=== PATIENT | male | born 1945 | race Caucasian/White ===

== ENCOUNTER 2016-10-10 07:47 | Day surgery (SDC) | payer MEDICARE ==
[2016-10-04 13:53] VITALS: BMI 34.1
[~2016-10-10 07:47] MED LIST: LACTATED RINGERS 1,000 ML IV SCH
[2016-10-10 08:13] VITALS: TEMP 97.7
[2016-10-10] MEDS ORDERED: LIDOCAINE 1% 20 ML VIAL (10MG/ML) FOR IV START INTRADERMA ONE (08:26)
[2016-10-10] MEDS ORDERED: PROPOFOL 10 MG/ML 20 ML VIAL IV ONE (08:31)
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
[2016-10-10 08:50] LABS: Glucose,Whole Blood 95 mg/dL (75-99)
[2016-10-10 09:10] VITALS: RESP 16
--- NOTE | 2016-10-10 09:13 | P.PCN ---
Date of Procedure: 10/10/16 Procedure(s) Performed: PREOPERATIVE DIAGNOSIS: History of colon cancer POSTOPERATIVE DIAGNOSIS: Poor prep but otherwise normal exam with diverticulosis PROCEDURE: Colonoscopy ANESTHESIA: MAC SURGEON: Mitch Manley M.D. SPECIMENS: None ENDOSCOPIC PROCEDURE: The patient was placed on the endoscopy table in the left decubitus position. The Olympus colonoscope was inserted into the anus and passed under direct visualization to the ileocolonic anastomosis. From that point the scope was slowly withdrawn inspecting all surfaces carefully. There were no neoplastic inflammatory or polypoid lesions throughout the transverse, descending, sigmoid and rectum. There was mild diverticulosis noted in the left colon. Overall the patient's prep was slightly suboptimal. Digital rectal examination was normal. The patient was taken to the recovery room in stable condition per anesthesia guidelines. RECOMMENDATIONS: Increase fiber. Follow-up colonoscopy in 3 years.
[2016-10-10 09:29] LABS: Glucose,Whole Blood 88 mg/dL (75-99)
[2016-10-10 10:18] VITALS: BP 95/58; PULSE 54
== END 2016-10-10 10:42 | disposition home or self-care (01) ==
LOC: ORWHC2ENDO 07:47
PROVIDERS: ATTEND Surgery
DX: Z08 Encounter for follow-up examination after completed treatment for malignant neoplasm (principal); K57.30 Diverticulosis of large intestine without perforation or abscess without bleeding; Z85.038 Personal history of other malignant neoplasm of large intestine; I50.9 Heart failure, unspecified; I10 Essential (primary) hypertension; J44.9 Chronic obstructive pulmonary disease, unspecified; E11.9 Type 2 diabetes mellitus without complications; H54.42 Blindness, left eye, normal vision right eye; H91.90 Unspecified hearing loss, unspecified ear; N40.0 Benign prostatic hyperplasia without lower urinary tract symptoms; F39 Unspecified mood [affective] disorder; Z90.49 Acquired absence of other specified parts of digestive tract; Z98.0 Intestinal bypass and anastomosis status; Z79.84 Long term (current) use of oral hypoglycemic drugs; Z79.891 Long term (current) use of opiate analgesic; Z79.899 Other long term (current) drug therapy
CPT/HCPCS: 45378; J2704

== ENCOUNTER → 2018-04-28 | Outpatient (CLI) | payer MEDICARE ==
--- NOTE | 2018-04-28 16:59 | CT ---
EXAMINATION TYPE: CT abdomen pelvis wo con DATE OF EXAM: 04/28/2018 COMPARISON: None INDICATION: Chronic UTI. DLP: 1681.3 mGycm, Automated exposure control for dose reduction was used. CONTRAST: 0 mL of Isovue 300. Study performed without Oral Contrast TECHNIQUE: Axial images were obtained from above the diaphragm to the pubic rami in the axial plane a t 5 mm thick sections. Reconstructed images are reviewed on the computer in the coronal plane. FINDINGS: Limited CT sections are obtained the lung bases. There is thickening through the left lower lobe per ibronchial regions. Underlying mass is not excluded. Right lung base appears clear.. CT ABDOMEN: Liver: Normal Spleen: Normal Pancreas: Some mild fatty infiltration is present. Adrenal glands: Left adrenal gland has some low density thickening 1.4 cm. Gallbladder: Gallstones are present. Kidneys: No masses are evident. No hydronephrosis is present. There is moderate to marked right hydr oureter which extends to the urinary bladder. No obstructing calcification is identified. There are 2 adjacent cysts extending from the mid to inferior pole left kidney measuring 5.2 cm and 9 Hounsfield units and 4.6 cm in 6 Hounsfield units. There is a posterior inferior pole right renal cyst measurin g 2.4 cm and 11 Hounsfield units. There is a prominent left hydroureter which terminates at the urina ry bladder. No renal or ureteral stones are identified. Aorta: Vascular calcification is within the aorta. Inferior vena cava: Normal. CT PELVIS: Loops of bowel within the abdomen and pelvis are normal. There is a small fecal bolus at the leve l the rectum. Fecal impaction is not excluded. Postsurgical changes are at the symphysis descending c olon sigmoid colon junction. Appendix: Normal as visualized. Urinary bladder: Urinary bladder wall appears within normal limits. No suspicious masses or calcifica tions are identified. No etiology for bilateral hydroureter is evident. Some mild wall thickening bhavya ng the anterior urinary bladder is not excluded. Genitourinary structures: Prostate is prominent contains multiple small calcifications. Outlet obstru ction may be present. Neurogenic bladder however is not clearly identified. Osseous structures: No suspicious lytic or sclerotic lesions. IMPRESSIONS: 1. Correlate for fecal impaction at the level the rectum. 2. Postsurgical changes at the descending colon sigmoid colon junction without evidence of obstructio n or stenosis. Some mild fecal retention to the colon is present. 3. Prominent bilateral ureteral dilatation with bilateral hydronephrosis. An obstructing etiology is not identified. 4. Mild wall thickening more anterior within urinary bladder is not excluded in the coronal plane whi ch has a more normal appearance in the axial plane. Consider the possibility of outlet obstruction wi th prominent prostate with multiple small calcifications. 5. There appears to be peribronchial thickening within the [id number] of the left lower lobe. Cons ider complete CT chest for additional evaluation. Neoplasm is not excluded.
== END | disposition home or self-care (01) ==
LOC: RADCTMAIN 11:10
PROVIDERS: ATTEND Urology
DX: N13.30 Unspecified hydronephrosis (principal); N28.82 Megaloureter; N32.89 Other specified disorders of bladder
CPT/HCPCS: 74176

== ENCOUNTER → 2018-05-21 | Outpatient (CLI) | payer MEDICARE ==
--- NOTE | 2018-05-21 14:51 | CT ---
EXAMINATION TYPE: High-resolution CT chest wo con DATE OF EXAM: 05/21/2018 COMPARISON: Correlation radiographs 05/12/2018 . Also, correlation CT abdomen 04/28/2018 HISTORY: 73-year-old male chest mass lump, cough. TECHNIQUE: Contiguous high-resolution axial scanning of the chest without IV contrast. 10 m slice thi ckness with 1 cm gap per HRCT protocol. Only supine scanning was performed. The patient declined pron e imaging. CT DLP: 535.8 mGycm Automated exposure control for dose reduction was used. FINDINGS: Moderate to large bilateral gynecomastia. Heart normal size without pericardial effusion. Extensive coronary vessel calcifications are present. Conventional arch vessel branching anatomy. Mildly aneurysmal upper descending thoracic aorta at 3.2 cm an ectatic lower descending thoracic aorta at 2.7 cm. No thoracic lymphadenopathy by HR CT technique. Mild diffuse bronchial wall thickening with strandy areas of atelectasis or scarring particularly at the posterior left base at the site of previously seen abnormal left basilar density on the [address] The opacity appears to have largely cleared. As HRCT is limited for assessment of nodules, a precautionary 6-12 month follow-up can be performed. No honeycombing, dominant groundglass, cystic change, bronchiectasis, centrilobular nodules, tree-in- bud opacities, or thickening of the bronchovascular bundles. No consolidation or pleural effusion. HR CT technique limits assessment for pulmonary nodules. Tiny hiatal hernia. Large exophytic left renal lesions partially visualized measuring up to at least 6.2 cm. These were present on the patient's 08/06/2017 CT and showed fluid attenuation suggesting larg e cysts. Cholelithiasis without abnormal gallbladder distention. Bones: Endplate spondylosis throughout the thoracic spine. IMPRESSION: 1. HRCT OF THE CHEST WITHOUT SPECIFIC FINDINGS OF INTERSTITIAL LUNG DISEASE. THERE IS MILD BRONCHIAL WALL THICKENING WHICH MAY REFLECT BRONCHITIS OR ASTHMA. 2. MOTION ARTIFACTS AT THE LEFT BASE AT THE SITE OF PREVIOUSLY SEEN LEFT LOWER LOBE OPACITY. THIS [place] APPEARS TO HAVE LARGELY CLEARED SUGGESTING RESOLUTION OF A PREVIOUS INFECTIOUS/INFLAMMATORY PROC ESS. HRCT IS LIMITED FOR ASSESSMENT OF PULMONARY NODULES, PRECAUTIONARY 6-12 MONTH FOLLOW-UP ROUTI NE CT CHEST CAN BE PERFORMED. 3. CAD, TINY HIATAL HERNIA, CHOLELITHIASIS, AND PARTIALLY VISUALIZED LARGE EXOPHYTIC LEFT RENAL LESIO NS, LIKELY CYSTS.
== END | disposition home or self-care (01) ==
LOC: RADCTMAIN 13:41
PROVIDERS: ATTEND Internal Medicine
DX: I25.10 Atherosclerotic heart disease of native coronary artery without angina pectoris (principal); J98.09 Other diseases of bronchus, not elsewhere classified; R91.8 Other nonspecific abnormal finding of lung field
CPT/HCPCS: 71250